=== PATIENT | male | born 1980 | race Caucasian/White ===

== ENCOUNTER 2019-02-16 05:38 | Outpatient (CLI) | payer MEDICAID ==
[~2019-02-16] VITALS: Ht 157.5 cm; Wt 64.4 kg
[2019-02-17] MEDS ORDERED: GEMF600T8 PO (12:11)
[2019-02-17] MEDS ORDERED: CETI-267 PO (12:11)
[2019-02-17] MEDS ORDERED: BENZ0.5T42 PO (12:11)
[2019-02-17] MEDS ORDERED: CALC-146 PO (12:11)
[2019-02-17] MEDS ORDERED: MV-M1TAB20 PO (12:11)
[2019-02-17] MEDS ORDERED: SENN-36 PO (12:11)
[2019-02-17] MEDS ORDERED: OMEP40CA36 PO (12:11)
[2019-02-17] MEDS ORDERED: DOCU-143 PO (12:11)
[2019-02-17] MEDS ORDERED: RISP1TAB94 PO (12:11)
[2019-02-17] MEDS ORDERED: FERR325T18 PO (12:11)
[2019-02-17] MEDS ORDERED: POLY17PO6 PO (12:11)
[2019-02-17] MEDS ORDERED: ESLI600T PO (12:11)
[2019-02-17] MEDS ORDERED: MAGN400C PO (12:11)
[2019-02-17] MEDS ORDERED: SUCR1TAB36 PO (12:11)
[2019-02-17] MEDS ORDERED: METO10TA3 PO (12:11)
[2019-02-17] MEDS ORDERED: METF-397 PO (12:11)
[2019-02-17] MEDS ORDERED: FLUT9.9S NS (12:12)
[2019-02-17] MEDS ORDERED: TROL85CR TP (12:12)
[2019-02-17] MEDS ORDERED: ACET325T49 PO (12:12)
[2019-02-17] MEDS ORDERED: TEMA15CA6 PO (12:12)
[2019-02-17] MEDS ORDERED: NPB.9O TP (12:12)
[2019-02-17] MEDS ORDERED: HYDR30CR69 RC (12:12)
== END 2019-02-17 12:17 | disposition home or self-care (01) ==
LOC: PREOP 05:38
PROVIDERS: ATTEND Otolaryngology Otolaryngology/Facial Plastic Surgery
DX: Z01.818 Encounter for other preprocedural examination (principal)

== ENCOUNTER 2019-02-23 07:33 | Day surgery (SDC) | payer MEDICAID ==
[~2019-02-23] VITALS: Ht 157.5 cm; Wt 64.4 kg
[2019-02-23] VITALS (15 sets, daily range): BP systolic 127–169; BP diastolic 90–126
[~2019-02-23 07:33] MED LIST: ACET325T49 PO; BENZ0.5T42 PO; CALC-146 PO; CETI-267 PO; DOCU-143 PO; ESLI600T PO; FERR325T18 PO; FLUT9.9S NS; GEMF600T8 PO; HYDR30CR69 RC; MAGN400C PO; METF-397 PO; METO10TA3 PO; MV-M1TAB20 PO; NPB.9O TP; OMEP40CA36 PO; POLY17PO6 PO; RISP1TAB94 PO; SENN-36 PO; SUCR1TAB36 PO; TEMA15CA6 PO; TROL85CR TP
--- OUTSIDE RECORDS SUMMARY | 2019-02-23 07:36 | XMS REPORT | CCD ---
Author Author ALFONSO CARRINGTON Unknown Address [address] [facility] [address] [place] [address] Care Team Providers Care Supervisor Drying Name Role Phone SELENA POLK DO Jacqueline Attphys Allergies Allergy Code Allergy Type Reaction Status MILK PRODUCTS 0 Food allergy Active MILK 0 Food allergy Active CLOZARIL 529383 Drug allergy Active LITHIUM 6448 Drug allergy Active DUST, MOLD, RAGWEED, SEASONAL {Clinical monitoring unavailable} 0 Allergy to substance Active SPICES {Clinical monitoring unavailable} 0 Food allergy Active ZYPREXA 675043 Drug allergy Active Active Medications Unknown or Not Available. Problems Unknown or Not Available. Procedures Procedure Code Procedure Type Date Esophagogastroduodenoscopy, flexible, transoral; [place] [address] CPT 11/30/2016 BEDSIDE GLUCOSE [id number] SNOMED CT 11/30/2016 PATHOLOGY ORDER [id number] SNOMED CT 11/30/2016 Results BEDSIDE GLUCOSE - Collect Date/Time: 11/30/2016 09:49 Test Name Code Test Result Test Units Test Ref Range GLUCOSE POCT 116 MG/DL L=70 H=100 Function Status Unknown or Not Available. History of Immunizations Immunization Code Date influenza, split (incl. purified surface antigen) 15 09/08/2002 influenza, split (incl. purified surface antigen) 15 07/31/2003 influenza, split (incl. purified surface antigen) 15 09/16/2004 influenza, split (incl. purified surface antigen) 15 07/29/2007 influenza, split (incl. purified surface antigen) 15 07/02/2009 Plan of Treatment Unknown or Not Available. Social History Smoking Status Code Start Date End Date Never smoker [id number] Vital Signs Vital Sign Value Unit Date/Time Recent/Initial? Weight Measured 120 [lb_av] 11/27/2016 11:40 Initial VS Height 62 [in_i] 11/27/2016 11:40 Initial VS BMI (Body Mass Index) 21.95 kg/m2 11/27/2016 11:40 Initial VS BSA (Body Surface Area) 1.54 m2 11/27/2016 11:40 Initial VS Function Status Unknown or Not Available. Goals Unknown or Not Available. ASSESSMENTS Unknown or Not Available. Health Concerns Section Unknown or Not Available.
--- OUTSIDE RECORDS SUMMARY | 2019-02-23 07:36 | XMS REPORT | CCD ---
Author Author LAURA MCLEAN Organization Unknown Address [address] [facility] [address] [place], [place] [id number] Care Team Providers Care Soft Hat Binder Name Role Phone PADDY ACOSTA DDS Attphys Vital Signs Vital Sign Value Unit Weight Measured 133.6 lbs Height 61 in BMI (Body Mass Index) 25.24 kg/m^2 BSA (Body Surface Area) 1.61 m^2 Allergies Allergy Code Allergy Type Reaction Status MILK PRODUCTS 0 Food allergy (disorder) Active MILK 0 Food allergy (disorder) Active CLOZARIL 0 Drug allergy (disorder) Active LITHIUM 0 Drug allergy (disorder) Active DUST, MOLD, RAGWEED, SEASONAL {Clinical monitoring unavailable} 0 Allergy to substance (disorder) Active SPICES {Clinical monitoring unavailable} 0 Food allergy (disorder) Active ZYPREXA 0 Drug allergy (disorder) Active Procedures Unknown. History of Immunizations Unknown. Problems Unknown. Results Unknown. Medications Medication Code Dose Units Frequency Route Modification Start Date/Time Stop Date/Time Flonase 0.05MG/Actuation Nasal [place] 884400 1 EACH TWO TIMES A DAY NASAL Benztropine Mesylate 0.5MG Oral Tablet 182224 0.5 MILLIGRAMS TWO TIMES A DAY ORAL Carbamazepine 400MG Oral Tablet, Extended Release 778616 400 MILLIGRAMS THREE TIMES A DAY ORAL Cetirizine 10MG Oral Tablet 2180608 10 MILLIGRAMS DAILY ORAL Citalopram 40MG Oral Tablet 063391 40 MILLIGRAMS AT BEDTIME ORAL Carafate 1GM Oral Tablet 008757 1 GM THREE TIMES A DAY ORAL Fenofibrate 145MG Oral Tablet 998499 145 MILLIGRAMS DAILY ORAL Fish Oil 1000MG Oral Capsule, Liquid Filled 436004 8384 MILLIGRAMS AT BEDTIME ORAL Gemfibrozil 600MG Oral Tablet 740530 600 MILLIGRAMS TWO TIMES A DAY ORAL Metformin 500MG Oral Tablet 330635 500 MILLIGRAMS DAILY ORAL Pepcid 20MG Oral Tablet 556940 20 MILLIGRAMS TWO TIMES A DAY ORAL Polyethylene Glycol (3350) 17GM/Dose Oral Powder for Solution 634203 1 EACH DAILY ORAL Risperdal 1MG Oral Tablet 867017 1 MILLIGRAMS TWO TIMES A DAY ORAL Medications Administered Unknown. Encounters Encounter Diagnosis Diagnosis Code Start Date UNSPECIFIED DENTAL CARIES 32373 02/09/2014 Social History Smoking Status Code Start Date End Date Never smoker [id number] Patient Decision Aids Unknown. Instructions You were admitted to [facility] on 02/09/2014 with a principle diagnosis of UNSPECIFIED DENTAL CARIES. You had the following procedures done: DENTAL SURGERY PROCEDURE DENTAL ISLAM NEC You were discharged from [facility] on 02/09/2014. Should you have any questions prior to discharge, please contact a member of your healthcare team. If you have left the hospital and have any questions, please contact your primary care physician. Chief Complaint and Reason For Visit Chief Complaint Date of Onset DEN EXTRACTIONS FILLINGS Function Status Unknown. Plan of Care Unknown. Referral/Transition of Care Unknown.
--- OUTSIDE RECORDS SUMMARY | 2019-02-23 07:36 | XMS REPORT ---
Author Author Rob Johnson [facility] Address [address] [place] [id number] Care Team Providers Care Busperson Name Role Phone Rbo Johnson PCP Allergies and Adverse Reactions Name Reaction Notes Zyprexa lithium citrate Clozaril environmental Milk Plan of Treatment Not available. Medications Active Name Start Date Estimated Completion Date SIG Comments Risperdal 1 mg oral tablet take 1 tablet (1 mg) by oral route 3 times per day Miralax 17 gram/dose oral powder take 17 gram mixed with 8 oz. water, juice, soda, coffee or tea by oral route once daily metformin 500 mg oral tablet take 1 tablet (500 mg) by oral route once daily in the morning gemfibrozil 600 mg oral tablet take 1 tablet (600 mg) by oral route 2 times per day 30 minutes before morning and evening meal Tylenol 325 mg oral tablet take 2 tablets (650 mg) by oral route every 4- 6 hours as needed Vitamin D3 oral 800 IU daily Os-Raymond 500 + D3 oral 1000mg daily Aptiom 600 mg oral tablet take 1 tablet (600 mg) by oral route once daily Flonase Allergy Relief 50 mcg/actuation nasal spray,suspension spray 1 spray (50 mcg) in each nostril by intranasal route twice daily Fish Oil 1,000 mg (120 mg-180 mg) oral capsule take 2 capsules by oral route magnesium 200 mg oral tablet take 2 tablets by oral route daily benztropine 0.5 mg oral tablet take 1 tablet (0.5 mg) by oral route 3 times per day AmLactin 12 % topical lotion apply to affected area BID and PRN Carafate 1 gram oral tablet 12/21/2017 01/20/2018 take 1 tablet (1 gram) by oral route 4 times per day on an empty stomach 1 hour before meals and at bedtime for 30 days Reglan 10 mg oral tablet 12/21/2017 01/20/2018 take 1 tablet (10 mg) by oral route 4 times per day 30 minutes before meals and at bedtime for 30 days omeprazole 40 mg oral capsule,delayed release(DR/EC) 12/21/2017 01/20/2018 take 1 capsule (40 mg) by oral route once daily before a meal for 30 days Name Start Date Expiration Date SIG Comments Pepcid 20 mg oral tablet take 1 tablet (20 mg) by oral route 2 times per day Carafate 1 gram oral tablet take 1 tablet (1 gram) by oral route 3 times per day on an empty stomach sucralfate 1 gram oral tablet take 1 tablet (1 gram) by oral route 4 times per day on an empty stomach 1 hour before meals and at bedtime omeprazole 40 mg oral capsule,delayed release(DR/EC) take 1 capsule (40 mg) by oral route once daily before a meal metoclopramide HCl 10 mg oral tablet take 1 tablet (10 mg) by oral route 4 times per day 30 minutes before meals and at bedtime Problem List Description Status Onset Metzger esophagus Active 11/25/2016 Intellectual disability Active 11/25/2016 Iron deficiency anemia Active 10/20/2017 Esophagitis Active 10/20/2017 Vital Signs Date Time BP-Sys(mm[Hg] BP-Hodan(mm[Hg]) HR(bpm) RR(rpm) Temp WT HT HC BMI BSA BMI Percentile O2 Sat(%) 12/21/2017 9:37:00 AM 141 mmHg 87 mmHg 92 bpm 20 rpm 97.2 F 144.5 lbs 63 in 25.60 kg/m2 1.71 m2 10/20/2017 1:59:00 PM 127 mmHg 83 mmHg 75 bpm 20 rpm 98.4 F 120 lbs 63 in 21.2568 kg/m 1.5555 m 11/25/2016 2:36:00 PM 141 mmHg 84 mmHg 89 bpm 20 rpm 97.8 F 133 lbs 63 in 23.56 kg/m2 1.64 m2 Social History Name Description Comments Tobacco Never smoker Alcohol Never History of Procedures Not available. Results Summary Not available. History Of Immunizations Not available. History of Past Illness Name Date of Onset Comments cally De Banks syndrome Intermittent explosive disorder Seizures Diabetes mellitus, Type 2 Sleep apnea Erosive esophagitis Hypercholesterolemia Nasal polyps Schizophrenia Depressive Disorder Neutropenia [place] toxicity GERD (gastroesophageal reflux disease) ulcer Dyspepsia 10/20/2017 Metzger esophagus 11/25/2016 Intellectual disability 11/25/2016 Iron deficiency anemia 10/20/2017 Esophagitis 10/20/2017 Dyspepsia Nov 25 2016 2:39PM Metzger esophagus Nov 25 2016 2:39PM Intellectual disability Nov 25 2016 2:39PM Iron deficiency anemia Oct 20 2017 2:25PM Esophagitis Oct 20 2017 2:25PM Iron deficiency anemia Dec 21 2017 9:39AM Esophagitis Dec 21 2017 9:39AM Payers Insurance Name Company Name Plan Name Plan Number Policy Number Policy Group Number Start Date [facility] [id number] N/A History of Encounters Visit Date Visit Type Provider 12/21/2017 Office visit Rob Johnson DO 10/25/2017 Surgery Rob Johnson DO 10/20/2017 Office visit Rob Johnson DO 10/11/2017 [facility] Walt Marrero MD 11/30/2016 Surgery Rob Johnson DO 11/25/2016 Office visit Rob Johnson DO
--- OUTSIDE RECORDS SUMMARY | 2019-02-23 07:36 | XMS REPORT ---
Author Rob Mckeon [facility] Address [address] [place] [id number] Care Team Providers Care Melt House Supervisor Name Role Phone Rob Johnson PCP Unavailable Allergies and Adverse Reactions Name Reaction Notes [...] or tea by oral route once daily Pepcid 20 mg oral tablet take 1 tablet (20 mg) by oral route 2 times per day metformin 500 mg oral tablet take 1 [...] needed Vitamin D3 oral 800 IU daily Carafate 1 gram oral tablet take 1 tablet (1 gram) by oral route 3 times per day on an empty stomach Os-Raymond 500 + D3 oral 1000mg daily [...] by oral route 3 times per day Problem List Description Status Onset Dyspepsia Active 11/25/2016 Metzger esophagus Active 11/25/2016 Intellectual disability Active 11/25/2016 Vital Signs Date Time BP-Sys(mm[Hg] BP-Hodan(mm[Hg]) HR(bpm) RR(rpm) Temp WT HT HC BMI BSA BMI Percentile O2 Sat(%) 11/25/2016 2:36:00 PM 141 mmHg 84 mmHg 89 bpm 20 rpm 97.8 F 133 lbs 63 in 23.56 kg/m2 1.64 m2 Social History Name Description Comments Tobacco Never smoker Alcohol Never History of Procedures Not available. Results Summary Not available. History Of Immunizations Not available. History of Past Illness Name Date of Onset Comments Intellectual Disability-mild to moderate cally De Banks syndrome Intermittent explosive disorder Seizures Diabetes mellitus, Type 2 Sleep apnea Metzger's esophagus Erosive esophagitis Hypercholesterolemia Nasal polyps Schizophrenia Depressive Disorder Neutropenia [place] toxicity GERD (gastroesophageal reflux disease) ulcer Dyspepsia 11/25/2016 Metzger esophagus 11/25/2016 Intellectual disability 11/25/2016 Dyspepsia Nov 25 2016 2:39PM Metzger esophagus Nov 25 2016 2:39PM Intellectual disability Nov 25 2016 2:39PM Payers Insurance Name Company Name Plan Name Plan Number Policy Number Policy Group Number Start Date [place] [facility] Assistance [facility] Assistance [facility] [id number] N/A History of Encounters Visit Date Visit Type Provider 11/25/2016 Office visit Rob Johnson DO
--- OUTSIDE RECORDS SUMMARY | 2019-02-23 07:37 | XMS REPORT ---
Author Rob Mckeon [facility] Address [address] [place] [id number] Care Team Providers Care Funeral Assistant Name Role Phone Rob Johnson PCP Unavailable [...] Hypercholesterolemia Nasal polyps Schizophrenia Depressive Disorder Neutropenia [place] toxicity GERD (gastroesophageal reflux disease) ulcer Dyspepsia 11/25/2016 Metzger esophagus 11/25/2016 Intellectual disability 11/25/2016 Dyspepsia Nov 25 2016 2:39PM Metzger esophagus Nov 25 2016 2:39PM Intellectual disability Nov 25 2016 2:39PM Payers Insurance Name Company Name Plan Name Plan Number Policy Number Policy Group Number Start Date [place] [facility] Assistance [facility] Assistance [facility] [id number] N/A History of Encounters Visit Date Visit Type Provider 11/25/2016 Office visit Rob Johnson DO
--- OUTSIDE RECORDS SUMMARY | 2019-02-23 07:37 | XMS REPORT ---
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 Results Summary Not available. History Of Immunizations Not available. History of Past Illness Name Date of Onset Comments cally De Banks syndrome Intermittent explosive disorder Seizures Diabetes mellitus, Type 2 Sleep apnea Erosive esophagitis Hypercholesterolemia Nasal polyps Schizophrenia Depressive Disorder Neutropenia [place] toxicity GERD (gastroesophageal reflux disease) ulcer Dyspepsia 10/20/2017 Metzger esophagus 11/25/2016 Intellectual disability 11/25/2016 Iron deficiency anemia 10/20/2017 Esophagitis 10/20/2017 Dyspepsia Nov 25 2016 2:39PM Metzger esophagus Nov 25 2016 2:39PM Intellectual disability Nov 25 2016 2:39PM Iron deficiency anemia Oct 20 2017 2:25PM Esophagitis Oct 20 2017 2:25PM Payers Insurance Name Company Name Plan Name Plan Number Policy Number Policy Group Number Start Date [place] [facility] Assistance [facility] [id number] N/A History of Encounters Visit Date Visit Type Provider 10/20/2017 Office visit Rob Johnson DO 11/30/2016 Surgery Rob Johnson DO 11/25/2016 Office visit Rob Johnson DO
--- OUTSIDE RECORDS SUMMARY | 2019-02-23 07:37 | XMS REPORT | Continuity of Care Document ---
Demographics Preferred Language Unknown Marital Status Unknown Mu-Ism Affiliation Unknown Race Unknown Ethnic Group Unknown Author Organization Unknown Address Unknown Allergies Active Description Code Type Severity Reaction Onset Reported/Identified Relationship to Patient Clinical Status Yes CLOZARIL [id number] BRANDNAME N/A N/A Yes DUST, MOLD, RAGWEED, SEASONAL [id number] ENVIRONMENTAL N/A N/A Yes LITHIUM [id number] DRUG N/A N/A Yes MILK [id number] FOOD N/A N/A Yes MILK PRODUCTS [id number] FOOD N/A N/A Yes SPICES [id number] FOOD N/A N/A Yes ZYPREXA [id number] BRANDNAME N/A N/A Medications There is no data. Problems There is no data. Procedures There is no data. Results There is no data. Encounters ACCT No. Visit Date/Time Discharge Status Pt. Type Provider Facility Loc./Unit Complaint [id number] 01/20/2019 09:25:04 Document Registration [id number] 01/03/2019 15:22:36 Document Registration [id number] 11/22/2018 16:25:43 Document Registration [id number] 11/17/2018 08:42:45 Document Registration [id number] 10/14/2018 08:53:05 Document Registration [id number] 07/15/2018 09:47:26 Document Registration [id number] 04/08/2018 09:08:32 Document Registration [id number] 03/31/2018 09:54:07 Document Registration [id number] 01/12/2018 09:53:55 Document Registration [id number] 12/24/2017 09:14:35 Document Registration [id number] 10/27/2017 10:48:50 Document Registration [id number] 10/20/2017 16:22:01 Document Registration [id number] 10/11/2017 14:38:21 Document Registration [id number] 10/11/2017 10:48:55 Document Registration [id number] 10/11/2017 10:30:47 Document Registration [id number] 10/08/2017 10:17:46 Document Registration [id number] 07/14/2017 10:14:19 Document Registration [id number] 12/21/2017 10:05:27 12/21/2017 23:59:59 CLS Outpatient Rob Johnson [id number] 11/03/2017 15:51:54 11/03/2017 23:59:59 CLS Outpatient Walt Marrero [id number] 10/28/2017 12:42:32 10/28/2017 23:59:59 CLS Outpatient Rob Johnson [id number] 10/20/2017 14:10:36 10/20/2017 23:59:59 CLS Outpatient Rob Johnson [id number] 12/01/2016 12:21:32 12/01/2016 23:59:59 CLS Outpatient Rob Johnson [id number] 11/25/2016 15:06:07 11/25/2016 23:59:59 CLS Outpatient Rob Johnson
[2019-02-23] MEDS: LACTATED RINGERS 1,000 ML IV PRN ×2 (08:05→10:52)
[2019-02-23] MEDS ORDERED: AMPICILLIN/SULBACTAM INJECTION 1.5 GM in NS (IVPB) 100 ML IV ONE (08:15)
[2019-02-23] MEDS ORDERED: HYDROCORTISONE 100 MG/2 ML (Solu-CORTEF) VIAL IV ONE (08:15)
[2019-02-23] MEDS ORDERED: LABETALOL HCL 20 MG/4 ML VIAL ONE (08:22)
[2019-02-23] MEDS ORDERED: LABETALOL HCL 20 MG/4 ML VIAL IV ONE ×2 (08:30→09:45)
[2019-02-23] MEDS ORDERED: COCAINE HCL 4% 2 ML SYR ONE (08:43)
[2019-02-23] MEDS ORDERED: BSS 15 ML ONE (08:43)
[2019-02-23] MEDS ORDERED: PHENYLEPHRINE 0.5% NASAL SPR (NEO-SYNEPHRINE) REG ONE (08:43)
[2019-02-23] MEDS ORDERED: LIDOCAINE/EPI 1%-1:100,000 (XYLOCAINE) 20ML ONE (08:43)
[2019-02-23] MEDS ORDERED: MIDAZOLAM 2 MG/2 ML (VERSED) VIAL ONE ×2 (09:37→09:46)
--- NOTE | 2019-02-23 09:43 | Progress Note-Pre Operative ---
Pre-Operative Progress Note H&P Reviewed The H&P was reviewed, patient examined and no changes noted. Date Seen by Provider: February 23, 2019 Time Seen by Provider: 09:00 Date H&P Reviewed: February 23, 2019 Time H&P Reviewed: 09:00 Pre-Operative Diagnosis: Bilat Chronic SInus disesae, dev septum, Bilat hyper of Inf turbs DARVIN MONTALVO MD February 23, 2019 09:43
[2019-02-23] MEDS ORDERED: MIDAZOLAM 2 MG/2 ML (VERSED) VIAL IVP ONE (09:45)
[2019-02-23] MEDS ORDERED: fentaNYL INJECTION 100 MCG/2 ML AMP ONE (09:46)
[2019-02-23] MEDS ORDERED: SEVOFLURANE (ULTANE) 15 ML INHAL SOLN ONE (10:52)
[2019-02-23] MEDS ORDERED: ROCURONIUM 10 MG/ML 5 ML SYRINGE IV ONE (10:52)
[2019-02-23] MEDS ORDERED: DEXAMETHASONE 10 MG/ML (DECADRON) 1 ML VIAL ONE (10:52)
[2019-02-23] MEDS ORDERED: GLYCOPYRROLATE 0.2 MG/ML (ROBINUL) 2 ML VIAL ONE (10:52)
[2019-02-23] MEDS ORDERED: ONDANSETRON 4 MG/2 ML (SDV) Z0FRAN ONE (10:52)
[2019-02-23] MEDS ORDERED: LIDOCAINE PF 2% 5 ML (XYLOCAINE) VIAL ONE (10:52)
[2019-02-23] MEDS ORDERED: NEOSTIGMINE 1 MG/ML 5 ML SYRINGE ONE (10:52)
[2019-02-23] MEDS ORDERED: proPOfol 200 MG/20 ML (DIPRIVAN) VIAL IV ONE (10:52)
[2019-02-23] MEDS ORDERED: D5 1/2 NS W/KCL 20 MEQ/L 1,000 ML IV SCH (11:02)
--- NOTE | 2019-02-23 11:02 | Progress Note-Post Operative ---
Post-Operative Progess Note Surgeon (s)/Baggage Checker (s) Surgeon DARVIN MONTALVO MD Baggage Checker n/a Pre-Operative Diagnosis Bilat Chronic SInus disesae, dev septum, Bilat hyper of Inf turbs Post-Operative Diagnosis same Post-Op Procedure Note Date of Procedure: February 23, 2019 Name of Procedure Performed: Bilat REvision ESs, Bilat Red of Inf Turbs Description & Findings Description and Findings: n/a Anesthesia Type get Estimated Blood Loss minimal Packing none. Specimen(s) collected/removed bilat chornic Sinus disesae DARVIN MONTALVO MD February 23, 2019 11:02
[2019-02-23] MEDS ORDERED: ACETAMINOPHEN 325 MG TABLET PO PRN (11:15)
[2019-02-23] MEDS ORDERED: morphine INJ 10 MG/ML 1ML (SYR OR VIAL) IVP ONE (11:15)
[2019-02-23] MEDS ORDERED: ONDANSETRON 4 MG/2 ML (SDV) Z0FRAN IVP PRN (11:15)
[2019-02-23] MEDS ORDERED: LABETALOL HCL 100 MG/20 ML VIAL IV PRN (11:15)
[2019-02-23] MEDS ORDERED: HYDROcodone/APAP 5 MG/325 MG (LORTAB) TAB PO PRN (11:15)
[2019-02-23] MEDS ORDERED: HYDROmorphone 2 MG/ML VIAL (DILAUDID) IV ONE (11:15)
[2019-02-23] MEDS ORDERED: predniSONE 20 MG TAB PO ONE (11:15)
[2019-02-23] MEDS ORDERED: MEPERIDINE (DEMEROL) INJ 50 MG/ML IVP ONE (11:15)
[2019-02-23] MEDS ORDERED: PRD20T PO (11:58)
[2019-02-23] MEDS ORDERED: AMOX-355 PO (11:58)
[2019-02-23] MEDS ORDERED: HYDR-3812 PO (11:58)
--- NOTE | 2019-02-23 16:24 | Anesthesia-General Post-Op ---
General Patient Condition Mental Status/LOC: Same as Preop Cardiovascular: Satisfactory Nausea/Vomiting: Absent Respiratory: Satisfactory Pain: Controlled Complications: Absent Post Op Complications Complications None Follow Up Care/Instructions Patient Instructions None needed. Anesthesia/Patient Condition Patient Condition Patient was seen this morning after the procedure and he was doing well, no complaints, stable vital signs, no apparent adverse anesthesia problems. KASANDRA DIAS DO February 23, 2019 16:24
== END 2019-02-23 12:50 | disposition home or self-care (01) ==
LOC: SDC 07:33
PROVIDERS: ATTEND Otolaryngology Otolaryngology/Facial Plastic Surgery
DX: J32.0 Chronic maxillary sinusitis (principal); J32.1 Chronic frontal sinusitis; J34.3 Hypertrophy of nasal turbinates; E11.9 Type 2 diabetes mellitus without complications; J45.909 Unspecified asthma, uncomplicated; G47.37 Central sleep apnea in conditions classified elsewhere; R56.9 Unspecified convulsions; K22.70 Barrett's esophagus without dysplasia; F20.9 Schizophrenia, unspecified; Z79.84 Long term (current) use of oral hypoglycemic drugs; Z79.899 Other long term (current) drug therapy
CPT/HCPCS: 82962; 87070; 87075; 87077; 87081; 87101; 87186; 87205